=== PATIENT | female | born 1975 | race Asian ===

== ENCOUNTER 2017-08-31 08:34 | Day surgery (SDC) | payer BC ==
[2017-08-30 09:10] LABS: CHLORIDE,CL 104 mmol/L (98-110); SODIUM,NA 139 mmol/L (136-146)
[~2017-08-31 08:34] MED LIST: Bupivacaine 0.25% 10 ML SDV ONE; Fluorescein 5 ML Vial ONE; Methylene Blue 50 MG/10 ML Ampule ONE; Vasopressin 20 Units/1 ML MDV ONE
[2017-08-31] MEDS ORDERED: Sodium Chloride 0.9% 2.5 ML Syringe FLUSH PRN (09:04)
[2017-08-31] MEDS ORDERED: Sodium Chloride 0.9% 10 ML Syringe FLUSH PRN (09:04)
[2017-08-31] MEDS ORDERED: Gentamicin Pediatric 10 MG/ML 2 ML SDV IV ONE (09:04)
[2017-08-31] MEDS: Lactated Ringers 1,000 ML IV SCH ×2 (09:08→21:53)
[2017-08-31] MEDS ORDERED: Rocuronium 10 MG/ML 10 ML Syringe ONE (09:11)
[2017-08-31] MEDS ORDERED: fentaNYL 250 MCG/5 ML SDV ONE (09:11)
[2017-08-31] MEDS ORDERED: Ondansetron 4 MG/2 ML SDV ONE (09:11)
[2017-08-31] MEDS ORDERED: Propofol 200 MG/20 ML SDV ONE (09:11)
[2017-08-31] MEDS ORDERED: diphenhydrAMINE 50 MG/ML SDV ONE (09:11)
[2017-08-31] MEDS ORDERED: Midazolam 1 MG/ML 2 ML SDV ONE (09:11)
[2017-08-31] MEDS ORDERED: Dexamethasone 4 MG/ML 5 ML MDV ONE (09:11)
[2017-08-31] MEDS ORDERED: Scopolamine 1.5 MG Transdermal Patch TRDERM PRN (09:12)
[2017-08-31] MEDS ORDERED: HYDROmorphone 2 MG/ML SDV ONE (09:12)
[2017-08-31] MEDS ORDERED: Gentamicin 400 MG in Sodium Chloride 0.9% 50 ML IV ONE (09:15)
[2017-08-31] MEDS ORDERED: Clindamycin Phosphate in D5W 900 MG in Premix Bag 1 BAG IV SCH ×2 (09:15)
--- NOTE | 2017-08-31 09:16 | PCM.PREANE ---
Preanesthetic Assessment - Anesthesia/Transfusion/Family Hx Anesthesia History: Prior Anesthesia Without Reaction Family History of Anesthesia Reaction: No Transfusion History: No Prior Transfusion(s) Intubation History: Unknown - Review of Systems General: No Symptoms Pulmonary: No Symptoms Cardiovascular: No Symptoms Gastrointestinal: No Symptoms Neurological: No Symptoms Other: Reports: None - Physical Assessment O2 Sat by Pulse Oximetry: 96 Respiratory Rate: 16 Vital Signs: Last Vital Signs Temp Pulse 76 08/31/17 09:06 Resp 16 08/31/17 09:06 BP 138/94 H 08/31/17 09:06 Pulse Ox 96 08/31/17 09:06 Height: 1.58 m Weight: 82.554 kg ASA Class: 2 Mental Status: Alert & Oriented x3 Airway Class: Mallampati = 2 Dentition: Reports: Normal Dentition Thyro-Mental Finger Breadths: 3 Mouth Opening Finger Breadths: 3 ROM/Head Extension: Full Lungs: Clear to Auscultation, Normal Respiratory Effort Cardiovascular: Regular Rate, Regular Rhythm - Lab Values: Laboratory Last Values WBC 5.90 K/uL (4.0-11.0) 08/30/17 08:29 RBC 4.62 M/uL (4.30-5.90) 08/30/17 08:29 Hgb 14.3 g/dL (12.0-16.0) 08/30/17 08:29 Hct 41.6 % (36.0-46.0) 08/30/17 08:29 MCV 90.0 fL (80.0-98.0) 08/30/17 08:29 MCH 31.0 pg (27.0-32.0) 08/30/17 08: MCHC 34.4 g/dL (31.0-37.0) 08/30/17 08:29 RDW Std Deviation 40.4 fl (28.0-62.0) 08/30/17 08:29 RDW Coeff of Reese 12 % (11.0-15.0) 08/30/17 08: Plt Count 282 K/uL (150-400) 08/30/17 08:29 MPV 9.10 fL (7.40-12.00) 08/30/17 08:29 Nucleated RBC % 0.0 /100WBC 08/30/17 08:29 Nucleated RBCs # 0 K/uL 08/30/17 08:29 Sodium 139 mmol/L (136-146) 08/30/17 08:29 Potassium 3.8 mmol/L (3.5-5.1) 08/30/17 08:29 Chloride 104 mmol/L (98-110) 08/30/17 08:29 Carbon Dioxide 26 mmol/L (21-31) 08/30/17 08:29 BUN 11 mg/dL (6.0-23.0) 08/30/17 08:29 Creatinine 0.8 mg/dL (0.6-1.5) 08/30/17 08:29 Est Cr Clr Drug Dosing 72.54 mL/min 08/30/17 08:29 Estimated GFR (MDRD) > 60.0 ml/min 08/30/17 08:29 Glucose 88 mg/dL (60-110) 08/30/17 08: Calcium 9.2 mg/dL (8.8-10.8) 08/30/17 08:29 HCG, Qual NEGATIVE (NEG) 08/30/17 08:29 Blood Type A POSITIVE 08/30/17 08:29 Antibody Screen NEGATIVE 08/30/17 08:29 - Allergies Allergies/Adverse Reactions: Allergies Allergy/AdvReac Type Severity Reaction Status Date / Time ceftriaxone [From Rocephin] Allergy Hives Verified 08/26/17 10:38 Sulfa (Sulfonamide Allergy Hives Verified 08/26/17 10:38 Antibiotics) - Blood Blood Available: No - Anesthesia Plan Pre-Op Medication Ordered: None - Acknowledgements Anesthesia Type Planned: General Anesthesia Pt an Appropriate Candidate for the Planned Anesthesia: Yes Alternatives and Risks of Anesthesia Discussed w Pt/Guardian: Yes Pt/Guardian Understands and Agrees with Anesthesia Plan: Yes PreAnesthesia Questionnaire HEENT History: Reports: Other (See Below) Other HEENT History: wears glasses Cardiovascular History: Reports: High Cholesterol (recently diagnosed, will try with diet first), Other (See Below) (vericose veins) Gastrointestinal History: Reports: GERD, Hiatal Hernia [employer]INIC SUPERVISOR History: Reports: Endometriosis, , Other (See Below) (h/o ovarian cysts) Musculoskeletal History: Reports: Fracture Other Musculoskeletal History: fx foot Neurological History: Reports: Migraines Psychiatric History: Reports: Anxiety, Depression, Suicide Attempt Endocrine/Metabolic History: Reports: Obesity/BMI 30+ Dermatologic History: Reports: Eczema - Past Surgical History Head Surgeries/Procedures: Reports: None Female Surgical History: Reports: Tubal Ligation Musculoskeletal Surgical History: Reports: Other (See Below) Other Musculoskeletal Surgeries/Procedures:: ganglion cyst removed from rt wrist - SUBSTANCE USE Smoking Status *Q: Former Smoker Recreational Drug Use History: No - HOME MEDS Home Medications: Home Meds ALPRAZolam [Xanax] 1 tab PO TID PRN 08/26/17 [History] Citalopram [Citalopram HBr] 1 tab PO DAILY 08/26/17 [History] [place] Guard 2 tab PO BEDTIME 08/26/17 [History] PNV95/Ferrous Fumarate/FA [ Vitamins Tablet] 1 tab PO DAILY 08/26/17 [ History] Phentermine HCl 1 tab PO DAILY 08/26/17 [History] traMADol HCl [Tramadol HCl] 1 tab PO ASDIRECTED PRN 08/26/17 [History] - CURRENT (IN HOUSE) MEDS Current Meds: Current Medications Lactated Ringer's (Ringers, Lactated) 1,000 mls @ 100 mls/hr IV ASDIRECTED [facility] Last Admin: 08/31/17 09:08 Dose: 100 mls/hr Clindamycin Phosphate 900 mg/ (Premix) 50 mls @ 89.286 mls/hr IV ONETIME TO[facility] Gentamicin Sulfate 400 mg/ (Sodium Chloride) 60 mls @ 120 mls/hr IV ONETIME ONE Stop: 08/31/17 09:44 Scopolamine (Transderm-Scop) 1.5 mg TRDERM Q72H PRN PRN Reason: Nausea Sodium Chloride (Saline Flush) 10 ml FLUSH ASDIRECTED PRN PRN Reason: Keep Vein Open Sodium Chloride (Saline Flush) 2.5 ml FLUSH ASDIRECTED PRN PRN Reason: Keep Vein Open Discontinued Medications Bupivacaine HCl (Sensorcaine-Mpf 0.25%) Confirm Administered Dose 10 ml .ROUTE .STK-MED ONE Stop: 08/31/17 07:25 Bupivacaine HCl (Sensorcaine-Mpf 0.25%) Confirm Administered Dose 10 ml .ROUTE .STK-MED ONE Stop: 08/31/17 08:13 Fluorescein Sodium (Ak-Fluor) Confirm Administered Dose 5 ml .ROUTE .STK-MED ONE Stop: 08/31/17 07:25 Methylene Blue (Provayblue) Confirm Administered Dose 50 mg .ROUTE .STK-MED ONE Stop: 08/31/17 07:25 Vasopressin (Vasopressin) Confirm Administered Dose 20 units .ROUTE .STK-MED ONE Stop: 08/31/17 07:38
[2017-08-31] MEDS ORDERED: Furosemide 40 MG/4 ML VIAL ONE (10:37)
[2017-08-31] MEDS ORDERED: Glycopyrrolate 0.2 MG/ML SDV ONE (12:50)
[2017-08-31] MEDS ORDERED: Neostigmine Methylsulfate 1 MG/ML 5 ML Syringe ONE (12:50)
[2017-08-31] MEDS ORDERED: Ketorolac 30 MG/ML SDV ONE (14:02)
--- NOTE | 2017-08-31 14:57 | PCM.POSTAN ---
POST ANESTHESIA ASSESSMENT - MENTAL STATUS Mental Status: Alert, Oriented - RESPIRATORY Respiratory Status: Respiratory Rate WNL, Airway Patent, O2 Saturation Stable - CARDIOVASCULAR CV Status: Pulse Rate WNL, Blood Pressure Stable - GASTROINTESTINAL GI Status: No Symptoms - POST OP HYDRATION Hydration Status: Adequate & Stable
--- NOTE | 2017-08-31 16:27 | PCM48HPAN ---
Post Anesthesia Note - EVALUATION WITHIN 48HRS OF ANESTHETIC Vital Signs in Normal Range: Yes Patient Participated in Evaluation: Yes Respiratory Function Stable: Yes Airway Patent: Yes Cardiovascular Function Stable: Yes Hydration Status Stable: Yes Pain Control Satisfactory: Yes Nausea and Vomiting Control Satisfactory: Yes Mental Status Recovered: Yes
--- NOTE | 2017-08-31 16:41 | PCM.OPNOTE ---
- General Post-Op/Procedure Note Date of Surgery/Procedure: 08/31/17 Operative Procedure(s): Total Laparoscopic Hysterectomy , Bilateral salphingectomy , Cystoscopy Findings: 10 week sized anteverted uterus. Laparoscopy showed very minimal endometriosis in the left pelvic sidewall Intial cytoscopy showed stitch in the bladder, the vagina cuff stitch was then removed and resutured, subsequent cystoscopy showed normal bladder with no stitches and bilateral jets Pre Op Diagnosis: Abnormal uterine bleeding. Chronic pelvic pain Post-Op Diagnosis: Same Anesthesia Technique: General Mask Primary Surgeon: Jennifer Deutsch Secondary Surgeon: Emma Simpson Anesthesia Provider: Wiley Tang Radi Pathology: Uterus and cervix and remnant of right and left tubes Fluid Replacement, Intraop: 3,000 Output, Urine Amount: 300 EBL in mLs: 200 Complications: None Condition: Good Free Text/Narrative:: Intake & Output 08/31/17 08/31/17 08/31/17 06:59 14:59 22:59 Intake Total 3150 Output Total 300 450 Balance -300 2700
[2017-08-31] MEDS ORDERED: Morphine 4 MG/ML Syringe IVPUSH PRN (16:44)
[2017-08-31] MEDS ORDERED: Morphine 2 MG/ML Syringe IVPUSH PRN (16:44)
[2017-08-31] MEDS ORDERED: Promethazine 25 MG/ML SDV IM PRN (16:44)
[2017-08-31] MEDS ORDERED: Ketorolac 30 MG/ML SDV IVPUSH ONE (16:44)
[2017-08-31] MEDS ORDERED: Ondansetron 4 MG/2 ML SDV IVPUSH PRN (16:44)
[2017-08-31] MEDS ORDERED: Acetaminophen/oxyCODONE 325-5 MG Tab PO PRN ×2 (16:44)
[2017-08-31] MEDS ORDERED: Gentamicin Pediatric 10 MG/ML 2 ML SDV IV SCH (16:45)
[2017-08-31] MEDS: Metoclopramide 10 MG/2 ML SDV IVPUSH SCH (18:47)
[2017-08-31] MEDS: Clindamycin Phosphate in D5W 900 MG in Premix Bag 1 BAG IV SCH ×2 (18:49)
--- NOTE | 2017-08-31 18:58 | PCM.SN ---
- Free Text/Narrative Note: Patient seen has bedside , she complains of slight nausea. she as good pain control. denies vaginal bleeding, she is tolerating fluids U/O;- 40cc/hr, Clear VSS;- 110 - 120s/50 - 70s , HR;- 60s- 80 , RR; - 20 Exam: Laparoscopic incision with dressing in place c/d/i Imp;- 42 s/p TLH , BS and cytoscopy Plan; Tylenol 1000mg q 8hrs reglan 10mg q 6hrs Percocet and Toradol as needed
[2017-08-31] MEDS: Acetaminophen 1,000 MG in Premix Bag 1 BAG IV SCH (19:26)
[2017-08-31] MEDS ORDERED: Ketorolac 30 MG/ML SDV IVPUSH PRN (23:00)
[2017-09-01] MEDS: Metoclopramide 10 MG/2 ML SDV IVPUSH SCH (02:06)
[2017-09-01] MEDS: Clindamycin Phosphate in D5W 900 MG in Premix Bag 1 BAG IV SCH ×2 (02:07)
[2017-09-01] MEDS: Acetaminophen 1,000 MG in Premix Bag 1 BAG IV SCH (02:44)
[2017-09-01 05:56] LABS: CHLORIDE,CL 105 mmol/L (98-110); SODIUM,NA 137 mmol/L (136-146)
--- NOTE | 2017-09-01 09:46 | PCM.SURGPN ---
- General Info Date of Service: 09/01/17 Date of Surgery/Procedure: 08/31/17 POD#: 1 Post-Op Diagnosis: Abnormal Uterine Bleeding Functional Status: Reports: Pain Controlled, Tolerating Diet, Ambulating, Urinating, Incentive Spirometry - Review of Systems General: Reports: No Symptoms HEENT: Reports: No Symptoms Pulmonary: Reports: No Symptoms Cardiovascular: Reports: No Symptoms Gastrointestinal: Reports: No Symptoms Genitourinary: Reports: No Symptoms Musculoskeletal: Reports: No Symptoms Skin: Reports: No Symptoms Neurological: Reports: No Symptoms - Patient Data Vitals - Most Recent: Last Vital Signs Temp 36.9 C 09/01/17 04:00 Pulse 91 09/01/17 04:00 Resp 19 09/01/17 04:00 BP 93/53 L 09/01/17 04:00 Pulse Ox 96 09/01/17 04:00 Weight - Most Recent: 82.554 kg I&O - Last 24 Hours: Intake & Output 08/31/17 09/01/17 09/01/17 22:59 06:59 14:59 Intake Total 6550 550 Output Total 850 2300 Balance 5700 -1750 Lab Results Last 24 Hrs: Laboratory Results - last 24 hr 09/01/17 09/01/17 Range/Units 05:08 05:08 WBC 8.35 (4.0-11.0) K/uL RBC 3.67 L (4.30-5.90) M/uL Hgb 11.3 L (12.0-16.0) g/dL Hct 33.5 L (36.0-46.0) % MCV 91.3 (80.0-98.0) fL MCH 30.8 (27.0-32.0) pg MCHC 33.7 (31.0-37.0) g/dL RDW Std Deviation 41.4 (28.0-62.0) fl RDW Coeff of Reese 12 (11.0-15.0) % Plt Count 244 (150-400) K/uL MPV 9.30 (7.40-12.00) fL Neut % (Auto) 75.4 (48.0-80.0) % Lymph % (Auto) 19.6 (16.0-40.0) % [place] % (Auto) 4.6 (0.0-15.0) % Eos % (Auto) 0.2 (0.0-7.0) % Baso % (Auto) 0.2 (0.0-1.5) % Neut # (Auto) 6.3 H (1.4-5.7) K/uL Lymph # (Auto) 1.6 (0.6-2.4) K/uL [place] # (Auto) 0.4 (0.0-0.8) K/uL Eos # (Auto) 0.0 (0.0-0.7) K/uL Baso # (Auto) 0.0 (0.0-0.1) K/uL Nucleated RBC % 0.0 /100WBC Nucleated RBCs # 0 K/uL Sodium 137 (136-146) mmol/L Potassium 3.9 (3.5-5.1) mmol/L Chloride 105 (98-110) mmol/L Carbon Dioxide 26 (21-31) mmol/L BUN 10 (6.0-23.0) mg/dL Creatinine 0.8 (0.6-1.5) mg/dL Est Cr Clr Drug Dosing 72.54 mL/min Estimated GFR (MDRD) > 60.0 ml/min Glucose 133 H (60-110) mg/dL Calcium 8.7 L (8.8-10.8) mg/dL Med Orders - Current: Current Medications Lactated Ringer's (Ringers, Lactated) 1,000 mls @ 100 mls/hr IV ASDIRECTED [facility] Last Admin: 08/31/17 21:53 Dose: 100 mls/hr Gentamicin Sulfate 120 mg/ (Sodium Chloride) 53 mls @ 106 mls/hr IV Q8H [facility] Clindamycin Phosphate 900 mg/ (Premix) 50 mls @ 100 mls/hr IV Q8H [facility] Ketorolac Tromethamine (Toradol) 30 mg IVPUSH Q6H PRN PRN Reason: Pain (severe 7-10) Stop: 09/05/17 23:01 Last Admin: 09/01/17 07:46 Dose: 30 mg Metoclopramide HCl (Reglan) 10 mg IVPUSH Q8H [facility] Morphine Sulfate (Morphine) 2 mg IVPUSH Q2H PRN PRN Reason: Pain (severe 7-10) Morphine Sulfate (Morphine) 4 mg IVPUSH Q2H PRN PRN Reason: Pain (severe 7-10) Ondansetron HCl (Zofran) 4 mg IVPUSH Q6H PRN PRN Reason: Nausea/Vomiting Oxycodone/Acetaminophen (Percocet 325-5 Mg) 1 tab PO Q4H PRN PRN Reason: Pain (moderate 4-6) Oxycodone/Acetaminophen (Percocet 325-5 Mg) 2 tab PO Q4H PRN PRN Reason: Pain (moderate 4-6) Promethazine HCl (Phenergan) 25 mg IM Q6H PRN PRN Reason: Nausea/Vomiting Scopolamine (Transderm-Scop) 1.5 mg TRDERM Q72H PRN PRN Reason: Nausea Last Admin: 08/31/17 09:55 Dose: 1.5 mg Sodium Chloride (Saline Flush) 10 ml FLUSH ASDIRECTED PRN PRN Reason: Keep Vein Open Sodium Chloride (Saline Flush) 2.5 ml FLUSH ASDIRECTED PRN PRN Reason: Keep Vein Open Discontinued Medications Bupivacaine HCl (Sensorcaine-Mpf 0.25%) Confirm Administered Dose 10 ml .ROUTE .STK-MED ONE Stop: 08/31/17 07:25 Bupivacaine HCl (Sensorcaine-Mpf 0.25%) Confirm Administered Dose 10 ml .ROUTE .STK-MED ONE Stop: 08/31/17 08:13 Dexamethasone (Dexamethasone) Confirm Administered Dose 20 mg .ROUTE .STK-MED ONE Stop: 08/31/17 09:12 Diphenhydramine HCl (Benadryl) Confirm Administered Dose 50 mg .ROUTE .STK-MED ONE Stop: 08/31/17 09:12 Fentanyl (Sublimaze) Confirm Administered Dose 250 mcg .ROUTE .STK-MED ONE Stop: 08/31/17 09:12 Fluorescein Sodium (Ak-Fluor) Confirm Administered Dose 5 ml .ROUTE .STK-MED ONE Stop: 08/31/17 07:25 Furosemide (Lasix) Confirm Administered Dose 40 mg .ROUTE .STK-MED ONE Stop: 08/31/17 10:38 Glycopyrrolate (Robinul) Confirm Administered Dose 0.4 mg .ROUTE .STK-MED ONE Stop: 08/31/17 12:51 Hydromorphone HCl (Dilaudid) Confirm Administered Dose 2 mg .ROUTE .STK-MED ONE Stop: 08/31/17 09:13 Clindamycin Phosphate 900 mg/ (Premix) 50 mls @ 89.286 mls/hr IV ONETIME [facility] Gentamicin Sulfate 400 mg/ (Sodium Chloride) 60 mls @ 120 mls/hr IV ONETIME ONE Stop: 08/31/17 09:44 Last Admin: 09/01/17 08:29 Dose: Not Given Acetaminophen (Ofirmev) Confirm Administered Dose 100 mls @ as directed IV .STK- MED ONE Stop: 08/31/17 10:39 Clindamycin Phosphate 900 mg/ (Premix) 50 mls @ 100 mls/hr IV Q8H [facility] Last Admin: 09/01/17 02:07 Dose: 100 mls/hr Acetaminophen 1,000 mg/ Premix 100 mls @ 400 mls/hr IV Q8H [facility] Stop: 09/01/17 01:14 Last Admin: 09/01/17 02:44 Dose: 400 mls/hr Gentamicin Sulfate 120 mg/ (Sodium Chloride) 53 mls @ 106 mls/hr IV Q8H [facility] Last Admin: 09/01/17 03:07 Dose: 106 mls/hr Ketorolac Tromethamine (Toradol) Confirm Administered Dose 30 mg .ROUTE .STK- MED ONE Stop: 08/31/17 14:03 Ketorolac Tromethamine (Toradol) 30 mg IVPUSH ONETIME ONE Stop: 08/31/17 16:45 Last Admin: 09/01/17 07:45 Dose: Not Given Methylene Blue (Provayblue) Confirm Administered Dose 50 mg .ROUTE .STK-MED ONE Stop: 08/31/17 07:25 Metoclopramide HCl (Reglan) 10 mg IVPUSH Q8H [facility] Last Admin: 09/01/17 02:06 Dose: 10 mg Midazolam HCl (Versed 1 Mg/Ml) Confirm Administered Dose 2 mg .ROUTE .STK-MED ONE Stop: 08/31/17 09:12 Neostigmine Methylsulfate (Neostigmine) Confirm Administered Dose 5 mg .ROUTE .STK-MED ONE Stop: 08/31/17 12:51 Ondansetron HCl (Zofran) Confirm Administered Dose 4 mg .ROUTE .STK-MED ONE Stop: 08/31/17 09:12 Propofol (Diprivan 20 Ml) Confirm Administered Dose 200 mg .ROUTE .STK-MED ONE Stop: 08/31/17 09:12 Rocuronium Niland (Zemuron) Confirm Administered Dose 100 mg .ROUTE .STK-MED ONE Stop: 08/31/17 09:12 Vasopressin (Vasopressin) Confirm Administered Dose 20 units .ROUTE .STK-MED ONE Stop: 08/31/17 07:38 - Exam Wound/Incisions: Dressing Dry and Intact, No Drainage General: Alert, Oriented HEENT: Pupils Equal Lungs: Clear to Auscultation Cardiovascular: Regular Rate, Regular Rhythm GI/Abdominal Exam: Normal Bowel Sounds Extremities: Normal Inspection - Problem List & Annotations (1) Status post laparoscopic hysterectomy SNOMED Code(s): 762184563 Code(s): Z90.710 - ACQUIRED ABSENCE OF BOTH CERVIX AND UTERUS Status: Acute Current Visit: Yes - Problem List Review Problem List Initiated/Reviewed/Updated: Yes - My Orders Last 24 Hours: Active Orders 24 hr Category Date Time Status Patient Status [ADT] Routine ADT 08/31/17 09:04 Active Patient Status [ADT] Routine ADT 08/31/17 16:44 Active Antiembolic Devices [RC] PER UNIT ROUTINE Care 08/31/17 09:05 Active Intake and Output [RC] PER UNIT ROUTINE Care 08/31/17 16:46 Active Notify Provider Intake and Out [RC] ASDIRECTED Care 08/31/17 16:44 Active Notify Provider Vital Signs [RC] ASDIRECTED Care 08/31/17 16:44 Active Oxygen Therapy [RC] ASDIRECTED Care 08/31/17 16:44 Active Pulse Oximetry [RC] PER UNIT ROUTINE Care 08/31/17 16:46 Active RT Incentive Spirometry [RC] Q2HWA Care 08/31/17 16:44 Active Up With Assistance [RC] PER UNIT ROUTINE Care 08/31/17 16:44 Active Up ad Karla [RC] PER UNIT ROUTINE Care 08/31/17 16:44 Active Vital Signs [RC] PER UNIT ROUTINE Care 08/31/17 16:44 Active Regular Diet [DIET] Diet 08/31/17 Dinner Active Acetaminophen/oxyCODONE [Percocet 325-5 MG] Med 08/31/17 16:44 Active 1 tab PO Q4H PRN Acetaminophen/oxyCODONE [Percocet 325-5 MG] Med 08/31/17 16:44 Active 2 tab PO Q4H PRN Clindamycin Phosphate in D5W [Cleocin in D5W] 900 mg Med 09/01/17 10:00 Active Premix Bag 1 bag IV Q8H Gentamicin 120 mg Med 09/01/17 10:00 Active Sodium Chloride 0.9% [Normal Saline] 50 ml IV Q8H Ketorolac [Toradol] Med 08/31/17 23:00 Active 30 mg IVPUSH Q6H PRN Metoclopramide [Reglan] Med 09/01/17 10:00 Active 10 mg IVPUSH Q8H Morphine Med 08/31/17 16:44 Active 2 mg IVPUSH Q2H PRN Morphine Med 08/31/17 16:44 Active 4 mg IVPUSH Q2H PRN Ondansetron [Zofran] Med 08/31/17 16:44 Active 4 mg IVPUSH Q6H PRN Promethazine [Phenergan] Med 08/31/17 16:44 Active 25 mg IM Q6H PRN Scopolamine [Transderm-Scop] Med 08/31/17 09:12 Active 1.5 mg TRDERM Q72H PRN Sodium Chloride 0.9% [Saline Flush] Med 08/31/17 09:04 Active 10 ml FLUSH ASDIRECTED PRN Sodium Chloride 0.9% [Saline Flush] Med 08/31/17 09:04 Active 2.5 ml FLUSH ASDIRECTED PRN Peripheral IV Discontinue [OM.PC] Routine Oth 08/31/17 16:44 Ordered Sequential Compression Device [OM.PC] Per Unit Routine Oth 08/31/17 09:04 Ordered Sequential Compression Device [OM.PC] Per Unit Routine Oth 08/31/17 16:44 Ordered Resuscitation Status Routine Resus Stat 08/31/17 16:44 Ordered Medication Orders Lactated Ringer's (Ringers, Lactated) 1,000 mls @ 100 mls/hr IV ASDIRECTED TO[facility] Last Admin: 08/31/17 21:53 Dose: 100 mls/hr Infusion: 08/31/17 19:08 Dose: 100 mls/hr Admin: 08/31/17 09:08 Dose: 100 mls/hr Gentamicin Sulfate 120 mg/ (Sodium Chloride) 53 mls @ 106 mls/hr IV Q8H [facility] Clindamycin Phosphate 900 mg/ (Premix) 50 mls @ 100 mls/hr IV Q8H [facility] Ketorolac Tromethamine (Toradol) 30 mg IVPUSH Q6H PRN PRN Reason: Pain (severe 7-10) Stop: 09/05/17 23:01 Last Admin: 09/01/17 07:46 Dose: 30 mg Metoclopramide HCl (Reglan) 10 mg IVPUSH Q8H [facility] Morphine Sulfate (Morphine) 2 mg IVPUSH Q2H PRN PRN Reason: Pain (severe 7-10) Morphine Sulfate (Morphine) 4 mg IVPUSH Q2H PRN PRN Reason: Pain (severe 7-10) Ondansetron HCl (Zofran) 4 mg IVPUSH Q6H PRN PRN Reason: Nausea/Vomiting Oxycodone/Acetaminophen (Percocet 325-5 Mg) 1 tab PO Q4H PRN PRN Reason: Pain (moderate 4-6) Oxycodone/Acetaminophen (Percocet 325-5 Mg) 2 tab PO Q4H PRN PRN Reason: Pain (moderate 4-6) Promethazine HCl (Phenergan) 25 mg IM Q6H PRN PRN Reason: Nausea/Vomiting Scopolamine (Transderm-Scop) 1.5 mg TRDERM Q72H PRN PRN Reason: Nausea Last Admin: 08/31/17 09:55 Dose: 1.5 mg Sodium Chloride (Saline Flush) 10 ml FLUSH ASDIRECTED PRN PRN Reason: Keep Vein Open Sodium Chloride (Saline Flush) 2.5 ml FLUSH ASDIRECTED PRN PRN Reason: Keep Vein Open - Assessment Assessment (Free Text/Narrative):: 42 s/p TLH/BS for Abnormal uterine bleeding , POD1 , stable - Plan Plan (Free Text/Narrative):: Discharge home today with Pain medication No heavy lifting Pelvic rest
[2017-09-01] MEDS ORDERED: Enoxaparin 40 MG/0.4 ML Syringe SUBCUT ONE (09:53)
[2017-09-01] MEDS ORDERED: Clindamycin Phosphate in D5W 900 MG in Premix Bag 1 BAG IV SCH ×2 (10:00)
[2017-09-01] MEDS ORDERED: Metoclopramide 10 MG/2 ML SDV IVPUSH SCH (10:00)
--- NOTE | 2017-09-03 06:42 | OR ---
DATE OF PROCEDURE: 08/31/2017 SURGEON: DIANA BAI PREOPERATIVE DIAGNOSIS: 1.Abnormal uterine bleeding. 2. Chronic pelvic pain POSTOPERATIVE DIAGNOSES: 1. Abnormal uterine bleeding. 2. Chronic pelvic pain. PROCEDURE: Total laparoscopic hysterectomy, bilateral salpingectomy, cystoscopy. ANESTHESIA: General. IV FLUID: 3 L. URINE OUTPUT: 300. COMPLICATIONS: None. FINDIN week sized anteverted uterus, Normal tubes and ovaries . Minimal endometriotic deposits on the right pelvic side wall BRIEF HISTORY: She is a 42-year-old para 3, who complained of having painful periods. She also complained of heavy uterine bleeding, which was prolonged. The patient also had used IUD in the past and was not happy with the IUD. She also did not desire to have a Mirena IUD placed for the prolonged periods. She had an endometrial biopsy done, which was benign. The patient was counseled for hysterectomy. The patient desired hysterectomy and was counseled about the risks, benefits, and alternatives. She desired to proceed with the hysterectomy. DESCRIPTION OF PROCEDURE: The patient was taken to the operating room, where general anesthesia was performed without difficulty. A pneumatic compression stocking was applied to the lower extremity. General anesthesia was performed without difficulty. The patient was placed in dorsal lithotomy position with Johnnie stirrups. Both arms were tucked on both sides. Examination under anesthesia showed about a 10-week sized anteverted uterus. The patient was prepared and draped in the usual sterile fashion. The Medrano catheter was inserted. A bivalved speculum was also placed to expose the cervix. The anterior lip of the cervix was grasped with the Allis forceps. The uterus was then sounded to about 9 cm. The Advincula supervisor heavy equipment was placed. The tip of the Advincula was inflated. The occluder balloon was also inflated. Attention was then placed to the abdomen. Marcaine was injected in the subumbilical fold. A small incision was made at the umbilical fold and the abdomen was entered by direct entry with the fiberoptic trocar. Upon confirmation of entry into the peritoneal cavity, the CO2 gas was then insufflated into the abdomen with a pressure of 15 mmHg. Intraabdominal survey revealed normal-appearing liver, gallbladder, and spleen. The pelvic anatomy was noted above. Again, two 5 mm trocars were inserted into bilateral lower quadrants two fingerbreadths medial and anterior to the anterior superior iliac spine, diagonal to the umbilicus. The patient was placed in the Trendelenburg position to facilitate pelvic exposure. Then, both ureters were identified and hysterectomy was started. On the right and left, the tubes was identified, and the LigaSure was used to transect the tubes and detached the tubes from the mesentery, all the way to the level of the uterus. The round ligament was identified and also transected to separate the broad ligament. The ovarian ligament was also and transected to separate the ovaries from the uterus. With the round ligament identified and transected, the bladder flap was created with the aid of the LigaSure device and Harmonic Scalpel. The bladder was dissected off the lower uterine segment and upper vagina. Also, the posterior peritoneum exposed to the level of the uterosacral to expose the uterine vessels after being skeletonized with the aid of LigaSure device and Harmonic. The Advincula manipulator was on tension to avoid the ureter injury. The LigaSure device was then used to coagulate the uterine vessels at the colpotomy junction and above the cervical vaginal junction. The uterine vessels was lateralized. The vagina was entered and scored circumferentially at the cervical vaginal junction with the harmonic scalpel. The uterosacral and cardinal ligament were then completely detached from the cervix. After completion of this, the attention was then placed to the vagina where the manipulator bulb was deflated, and the cervix and the uterus were taken out through the vagina. The vaginal colpotomy was then identified. A Juarez stitch was placed from the posterior vagina to the uterosacrals through the peritoneum back to the uterosacrals on the other side. The vaginal incision was then stitched in a transverse fashion. A Juarez's was then tied up to elevate the vagina. A cystoscopy was performed. An incision stitch was found in the lower bladder segment. Attention was then placed to the vagina, where the Juarez's was removed and the vaginal incision was removed. It was then replaced with attention paid to avoid the bladder. After the cystoscopy was also performed, bladder was noted to be intact and the ureter jet was also observed. The attention was then paid to the abdomen for laparoscopy. Hemostasis was controlled with the hemostatic film was noted Inspection then revealed hemostasis. The trocars were then removed under direct guidance. The instruments were removed from the abdomen. The laparoscopic incision was then stitched with 4-0 Monocryl. The Steri-Strips was placed. Good hemostasis was noted in the abdomen. The vagina was then inspected again and the incision was noted to be hemostatic. All instrument and pad count were correct x2. The patient was taken to the recovery room in stable condition. ASA ELIZABETH /[id number] RAH
== END 2017-09-01 11:00 | disposition home or self-care (01) ==
LOC: MW.SDS 08:34 → MW.OB 16:07 → MW.SDS 09-01 11:00
PROVIDERS: ATTEND Obstetrics & Gynecology
DX: N84.0 Polyp of corpus uteri (principal); N80.0 Endometriosis of uterus; F32.9 Major depressive disorder, single episode, unspecified; E78.00 Pure hypercholesterolemia, unspecified; Z88.1 Allergy status to other antibiotic agents; Z88.2 Allergy status to sulfonamides; Z79.899 Other long term (current) drug therapy; Z98.51 Tubal ligation status
CPT/HCPCS: 36415; 58571; 80048; 84703; 85025; 85027; 86850; 86900; 86901; 88302; 88307; A9270; J1100; J1170; J1200; J1580; J1650; J1885; J1940; J2250; J2405; J2765; J3010; J7050; J7120; 00840; J2704

== ENCOUNTER 2017-11-19 09:07 | Day surgery (SDC) | payer BC ==
[~2017-11-19 09:07] MED LIST changes: -Bupivacaine 0.25% 10 ML SDV ONE; -Fluorescein 5 ML Vial ONE; +Lactated Ringers 1,000 ML IV SCH; +Lidocaine 2% 5 ML SDV ONE; -Methylene Blue 50 MG/10 ML Ampule ONE; +Propofol 200 MG/20 ML SDV ONE; -Vasopressin 20 Units/1 ML MDV ONE
--- NOTE | 2017-11-19 09:43 | PCM.PREANE ---
Preanesthetic Assessment - Anesthesia/Transfusion/Family Hx Anesthesia History: Prior Anesthesia Without Reaction Family History of Anesthesia Reaction: No Transfusion History: No Prior Transfusion(s) Intubation History: Unknown - Review of Systems General: No Symptoms Pulmonary: No Symptoms Cardiovascular: No Symptoms Neurological: No Symptoms Other: Reports: None - Physical Assessment NPO Status Date: 11/18/17 Height: 1.57 m Weight: 80.286 kg ASA Class: 2 Mental Status: Alert & Oriented x3 Airway Class: Mallampati = 1 ROM/Head Extension: Full Lungs: Clear to Auscultation, Normal Respiratory Effort Cardiovascular: Regular Rate, Regular Rhythm - Allergies Allergies/Adverse Reactions: Allergies Allergy/AdvReac Type Severity Reaction Status Date / Time ceftriaxone [From Rocephin] Allergy Hives Verified 11/17/17 10:35 Sulfa (Sulfonamide Allergy Hives Verified 11/17/17 10:35 Antibiotics) - Acknowledgements Anesthesia Type Planned: MAC Pt an Appropriate Candidate for the Planned Anesthesia: Yes Alternatives and Risks of Anesthesia Discussed w Pt/Guardian: Yes Pt/Guardian Understands and Agrees with Anesthesia Plan: Yes Additional Comments: PMH: gerd and dysphagia PreAnesthesia Questionnaire HEENT History: Reports: Other (See Below) Other HEENT History: wears glasses Cardiovascular History: Reports: None, High Cholesterol Gastrointestinal History: Reports: GERD, Hiatal Hernia Genitourinary History: Reports: None MATERIALS DIRECTOR History: Reports: Endometriosis, Musculoskeletal History: Reports: Fracture Other Musculoskeletal History: fx foot Neurological History: Reports: Migraines Psychiatric History: Reports: Anxiety, Depression, Suicide Attempt Endocrine/Metabolic History: Reports: Obesity/BMI 30+ Hematologic History: Reports: Anemia Dermatologic History: Reports: Eczema - Past Surgical History Head Surgeries/Procedures: Reports: None GI Surgical History: Reports: Colonoscopy, EGD Female Surgical History: Reports: Hysterectomy, Tubal Ligation Musculoskeletal Surgical History: Reports: Other (See Below) Other Musculoskeletal Surgeries/Procedures:: ganglion cyst removed from rt wrist - SUBSTANCE USE Smoking Status *Q: Former Smoker Recreational Drug Use History: No - HOME MEDS Home Medications: Home Meds ALPRAZolam [Xanax] 1 tab PO TID PRN 08/26/17 [History] Citalopram [Citalopram HBr] 1 tab PO DAILY 08/26/17 [History] PNV95/Ferrous Fumarate/FA [ Vitamins Tablet] 2 tab CHEW DAILY 08/26/17 [ History] Fexofenadine [Laya] 1 tab PO ASDIRECTED PRN 11/17/17 [History] Ibuprofen 1 tab PO ASDIRECTED PRN 11/17/17 [History] Omeprazole 20 mg PO DAILY 11/17/17 [History] Ranitidine HCl [Zantac] 1 tab PO DAILY 11/17/17 [History] - CURRENT (IN HOUSE) MEDS Current Meds: Current Medications Lactated Ringer's (Ringers, Lactated) 1,000 mls @ 125 mls/hr IV ASDIRECTED TOBY Discontinued Medications Lidocaine (Xylocaine-Mpf 2%) Confirm Administered Dose 5 ml .ROUTE .STK-MED ONE Stop: 11/19/17 07:29 Propofol (Diprivan 20 Ml) Confirm Administered Dose 400 mg .ROUTE .STK-MED ONE Stop: 11/19/17 07:29
[2017-11-19] MEDS ORDERED: Propofol 200 MG/20 ML SDV ONE (11:47)
--- NOTE | 2017-11-19 12:20 | PCM.OPNOTE ---
- General Post-Op/Procedure Note Date of Surgery/Procedure: 11/19/17 Operative Procedure(s): Esophagogastroduodenoscopy with biopsy. Colonoscopy. Pre Op Diagnosis: Progressive heartburn with gastroesophageal reflux. Change in bowel habits. Post-Op Diagnosis: Gastritis. Hiatal hernia. No evidence of colonic neoplasia. Anesthesia Technique: MAC (ASA II) Primary Surgeon: Claudy Wilkins Blade Grinder: Inder Metzger Condition: Good Free Text/Narrative:: Dictation [id number] CPT CODE 50207/[id number]
[2017-11-19] MEDS ORDERED: Lactated Ringers 1,000 ML IV SCH (12:30)
--- NOTE | 2017-11-22 11:16 | OR ---
SURGEON: Claudy Wilkins M.D. DATE OF PROCEDURE: 11/19/2017 OPERATION PERFORMED: Esophagogastroduodenoscopy with biopsy. ANESTHESIA: MAC. ASA CLASSIFICATION: II. FIBER TECHNOLOGIST: Dr. Metzger, PGY2. PREOPERATIVE DIAGNOSIS: Progressive heartburn with reflux. POSTOPERATIVE DIAGNOSES: 1. Gastritis. 2. Hiatal hernia. DESCRIPTION OF PROCEDURE: The patient was taken to the endoscopy room and positioned on the endoscopy table in the left lateral decubitus position. Time-out was called for appropriate identification of the patient and procedure. Monitored anesthesia care was provided. A bite block was placed between the patient's teeth and the gastroscope inserted through the bite block into the oropharynx. This was advanced without difficulty into the esophagus and subsequently through the stomach into the duodenum, where examination could now be carried out in a retrograde fashion. The duodenum shows no acute inflammatory changes. Stomach shows mild gastritis. Antral biopsies were obtained to look for the presence of Helicobacter pylori. The gastroscope was then retroflexed to look at the proximal stomach. The patient does have a hiatal hernia that can be seen from below, as well as from above. The scope was then straightened and slowly withdrawn, carefully visualizing the greater and lesser curvatures. The hiatal hernia was again visualized. Stomach was aspirated as the scope was withdrawn. The GE junction was well defined and shows no acute inflammatory changes or ulcerations. The esophagus demonstrates good contractility. No mid or proximal lesions were identified. The vocal cords were visualized as the scope was withdrawn. Vocal cords move symmetrically. No vocal cord lesions were identified. The gastroscope was then removed with the patient having tolerated the procedure well. Following colonoscopy, she was taken to recovery room in stable condition. AURA ELIZABETH /[id number]
--- NOTE | 2017-11-22 11:19 | OR ---
SURGEON: Claudy Wilkins M.D. DATE OF PROCEDURE: 11/19/2017 OPERATION PERFORMED: Colonoscopy. COLLAR TURNER OPERATOR: Dr. Metzger, PGY2. ANESTHESIA: MAC. ASA CLASSIFICATION: II. PREOPERATIVE DIAGNOSIS: Change in bowel habits. POSTOPERATIVE DIAGNOSIS: No evidence of neoplasia or inflammatory bowel disease. DESCRIPTION OF PROCEDURE: With the patient having completed esophagogastroduodenoscopy, she was maintained in the left lateral decubitus position. The colonoscope was inserted into the rectum and advanced with minimal difficulty to the cecum, where the colonoscope was retroflexed to visualize the ascending colon from below. The colonoscope was then straightened and slowly withdrawn. The cecum, ascending colon, hepatic flexure, transverse colon, splenic flexure, descending colon, sigmoid colon, and rectum were very well visualized. No tumors, polyps, diverticula, or angiodysplastic changes were noted anywhere in the lower gastrointestinal tract. The colonoscope was withdrawn to the rectum and retroflexed to visualize the anal orifice from above. Again, no tumors or polyps were seen, and there were no acute hemorrhoidal changes. The colonoscope was straightened, the rectum aspirated, and the colonoscope removed. The patient tolerated the procedure well and was taken to recovery room in stable condition. AURA / CLARA /[id number]
== END 2017-11-19 12:55 | disposition home or self-care (01) ==
LOC: MW.SDS 09:07
PROVIDERS: ATTEND Surgery
DX: K29.50 Unspecified chronic gastritis without bleeding (principal); K44.9 Diaphragmatic hernia without obstruction or gangrene; R19.4 Change in bowel habit; K21.9 Gastro-esophageal reflux disease without esophagitis; F41.9 Anxiety disorder, unspecified; F32.9 Major depressive disorder, single episode, unspecified; E66.9 Obesity, unspecified; Z68.32 Body mass index [BMI] 32.0-32.9, adult; D64.9 Anemia, unspecified; E78.00 Pure hypercholesterolemia, unspecified; L30.9 Dermatitis, unspecified; Z88.1 Allergy status to other antibiotic agents; Z88.2 Allergy status to sulfonamides; Z79.899 Other long term (current) drug therapy; Z90.710 Acquired absence of both cervix and uterus; Z98.51 Tubal ligation status; Z98.890 Other specified postprocedural states; Z87.891 Personal history of nicotine dependence
CPT/HCPCS: 43239; 45378; J7120; 00813; 88305; 88312; J2704

== ENCOUNTER 2018-04-15 06:56 | Day surgery (SDC) | payer BC ==
[~2018-04-15 06:56] MED LIST changes: +Ciprofloxacin in D5W 400 MG in Premix Bag 1 BAG IV SCH; -Lidocaine 2% 5 ML SDV ONE; -Propofol 200 MG/20 ML SDV ONE
[2018-04-15] MEDS ORDERED: fentaNYL 100 MCG/2 ML SDV ONE ×2 (07:22→08:49)
[2018-04-15] MEDS ORDERED: Midazolam 1 MG/ML 2 ML SDV ONE (07:22)
[2018-04-15] MEDS ORDERED: Propofol 200 MG/20 ML SDV ONE (07:22)
[2018-04-15] MEDS ORDERED: Scopolamine 1.5 MG Transdermal Patch TRDERM PRN (07:23)
--- NOTE | 2018-04-15 07:27 | PCM.PREANE ---
Preanesthetic Assessment - Anesthesia/Transfusion/Family Hx Anesthesia History: Prior Anesthesia Without Reaction Family History of Anesthesia Reaction: No Transfusion History: No Prior Transfusion(s) Intubation History: Unknown - Review of Systems General: No Symptoms Pulmonary: No Symptoms Cardiovascular: No Symptoms Gastrointestinal: Abdominal Pain Neurological: No Symptoms Other: Reports: None - Physical Assessment O2 Sat by Pulse Oximetry: 98 Respiratory Rate: 16 Vital Signs: Last Vital Signs Temp 36.4 C 04/15/18 07:13 Pulse 75 04/15/18 07:13 Resp 16 04/15/18 07:13 BP 128/73 04/15/18 07:13 Pulse Ox 98 04/15/18 07:13 Height: 1.57 m Weight: 82.554 kg ASA Class: 2 Mental Status: Alert & Oriented x3 Airway Class: Mallampati = 2 Dentition: Reports: Normal Dentition Thyro-Mental Finger Breadths: 3 Mouth Opening Finger Breadths: 2 ROM/Head Extension: Full Lungs: Clear to Auscultation, Normal Respiratory Effort Cardiovascular: Regular Rate, Regular Rhythm - Allergies Allergies/Adverse Reactions: Allergies Allergy/AdvReac Type Severity Reaction Status Date / Time ceftriaxone [From Rocephin] Allergy Hives Verified 04/13/18 08:25 Sulfa (Sulfonamide Allergy Hives Verified 04/13/18 08:25 Antibiotics) - Blood Blood Available: No - Anesthesia Plan Pre-Op Medication Ordered: None - Acknowledgements Anesthesia Type Planned: General Anesthesia Pt an Appropriate Candidate for the Planned Anesthesia: Yes Alternatives and Risks of Anesthesia Discussed w Pt/Guardian: Yes Pt/Guardian Understands and Agrees with Anesthesia Plan: Yes PreAnesthesia Questionnaire HEENT History: Reports: Allergic Rhinitis, Other (See Below) Other HEENT History: wears glasses Cardiovascular History: Reports: None, High Cholesterol (controlled by diet) Gastrointestinal History: Reports: Cholelithiasis, GERD, Hiatal Hernia Genitourinary History: Reports: None MATERIALS BUYER History: Reports: Endometriosis, Musculoskeletal History: Reports: Fracture Other Musculoskeletal History: fx foot Neurological History: Reports: Migraines (occasional) Psychiatric History: Reports: Anxiety, Depression, Suicide Attempt Endocrine/Metabolic History: Reports: Obesity/BMI 30+ Hematologic History: Reports: Anemia Dermatologic History: Reports: Eczema - Past Surgical History Head Surgeries/Procedures: Reports: None GI Surgical History: Reports: Colonoscopy, EGD Female Surgical History: Reports: Hysterectomy, Tubal Ligation Musculoskeletal Surgical History: Reports: Other (See Below) Other Musculoskeletal Surgeries/Procedures:: ganglion cyst removed from rt wrist - SUBSTANCE USE Smoking Status *Q: Former Smoker Tobacco Use Within Last Twelve Months: No Recreational Drug Use History: No - HOME MEDS Home Medications: Home Meds ALPRAZolam [Xanax] 1 tab PO TID PRN 08/26/17 [History] Citalopram [Citalopram HBr] 1 tab PO DAILY 08/26/17 [History] PNV95/Ferrous Fumarate/FA [ Vitamins Tablet] 2 tab CHEW DAILY 08/26/17 [ History] Fluticasone Propionate [Flonase] 2 spray NASBOTH DAILY 04/13/18 [History] Pantoprazole Sodium 40 mg PO DAILY 04/13/18 [History] Rizatriptan Benzoate [Rizatriptan] 1 tab PO ASDIRECTED PRN 04/13/18 [History] - CURRENT (IN HOUSE) MEDS Current Meds: Current Medications Ciprofloxacin/Dextrose 400 mg/ (Premix) 200 mls @ 200 mls/hr IV Q12H [facility] Last Admin: 04/15/18 07:18 Dose: 200 mls/hr Lactated Ringer's (Ringers, Lactated) 1,000 mls @ 125 mls/hr IV ASDIRECTED [facility] Last Admin: 04/15/18 07:17 Dose: 125 mls/hr
[2018-04-15] MEDS ORDERED: Dexamethasone 4 MG/ML 5 ML MDV ONE (07:33)
[2018-04-15] MEDS ORDERED: Lidocaine 2% 5 ML SDV ONE (07:33)
[2018-04-15] MEDS ORDERED: Ondansetron 4 MG/2 ML SDV ONE (07:33)
[2018-04-15] MEDS ORDERED: Succinylcholine 200 MG/10 ML MDV ONE (07:33)
[2018-04-15] MEDS ORDERED: Rocuronium 10 MG/ML 10 ML Syringe ONE (07:33)
[2018-04-15] MEDS ORDERED: Bupivacaine 0.5% 10 ML SDV ONE (07:43)
[2018-04-15] MEDS ORDERED: Glycopyrrolate 0.2 MG/ML SDV ONE ×2 (08:32→08:33)
[2018-04-15] MEDS ORDERED: Ketorolac 30 MG/ML SDV ONE (09:02)
[2018-04-15] MEDS ORDERED: Neostigmine Methylsulfate 1 MG/ML 5 ML Syringe ONE (09:02)
[2018-04-15] MEDS ORDERED: Sugammadex Sodium 200 MG/2 ML VIAL ONE (09:04)
[2018-04-15] MEDS ORDERED: ePHEDrine 50 MG/ML SDV ONE (09:11)
[2018-04-15] MEDS ORDERED: Morphine 10 MG/ML Syringe IVPUSH PRN (09:30)
[2018-04-15] MEDS ORDERED: Lactated Ringers 1,000 ML IV SCH (09:30)
[2018-04-15] MEDS ORDERED: Acetaminophen/HYDROcodone 325-5 MG Tab PO PRN (09:30)
--- NOTE | 2018-04-15 09:32 | PCM.OPNOTE ---
- General Post-Op/Procedure Note Date of Surgery/Procedure: 04/15/18 Operative Procedure(s): Laparoscopic cholecystectomy Pre Op Diagnosis: Symptomatic cholelithiasis Post-Op Diagnosis: Same Anesthesia Technique: General ET Tube (ASA II) Primary Surgeon: Claudy Wilkins Fluid Replacement, Intraop: 600 Output, Urine Amount: 100 EBL in mLs: 25 Condition: Good Free Text/Narrative:: DICTATION [id number] CPT CODE [id number]
[2018-04-15] MEDS ORDERED: fentaNYL 100 MCG/2 ML SDV IVPUSH PRN (09:35)
--- NOTE | 2018-04-15 10:09 | PCM.POSTAN ---
POST ANESTHESIA ASSESSMENT - MENTAL STATUS Mental Status: Alert, Oriented - RESPIRATORY Respiratory Status: Respiratory Rate WNL, Airway Patent, O2 Saturation Stable - CARDIOVASCULAR CV Status: Pulse Rate WNL, Blood Pressure Stable - GASTROINTESTINAL GI Status: No Symptoms - PAIN Pain Score: 2 - POST OP HYDRATION Hydration Status: Adequate & Stable - OBSERVATIONS Free Text/Narrative:: no anesthesia problems
--- NOTE | 2018-04-15 13:30 | OR ---
SURGEON: Claudy Wilkins M.D. DATE OF PROCEDURE: 04/15/2018 OPERATION PERFORMED: Laparoscopic cholecystectomy. ANESTHESIA: General endotracheal. ASA CLASSIFICATION: II. PREOPERATIVE DIAGNOSIS: Symptomatic cholelithiasis. POSTOPERATIVE DIAGNOSIS: Symptomatic cholelithiasis. ESTIMATED BLOOD LOSS: 25 mL. INTRAOPERATIVE FLUID REPLACEMENT: 600 mL of crystalloid. INTRAOPERATIVE URINE OUTPUT: 100 mL. DESCRIPTION OF PROCEDURE: The patient was taken to the operating room and placed on the operating table in the supine position. Time-out was called for appropriate identification of the patient and procedure. Thigh-high TEDs and sequential compression boots were placed. Following satisfactory attainment of general endotracheal anesthesia, Medrano catheter was placed in the patient's urinary bladder. The abdomen was prepped with DuraPrep solution and sterile drapes were applied. Skin just below the umbilicus was infiltrated with 0.5% Marcaine solution. The skin incision was made and deepened through the subcutaneous tissue obtaining hemostasis with the use of electrocautery. The Veress needle was introduced into the peritoneal cavity. The saline drop test was positive. Carbon dioxide pneumoperitoneum was established with the release set at 13 cm of water. Once a satisfactory pneumoperitoneum was established, 5 mm camera and port were placed through the infraumbilical incision. The patient was now positioned with her feet down and rolled to the left. Under camera vision, 12 mm subxiphoid, 5 mm midclavicular, and 5 mm anterior axillary ports were placed. Each incision was preemptively infiltrated with 0.5% Marcaine solution. The gallbladder was grasped, adhesions were taken down, and cholecystohepatic triangle was dissected free obtaining a good critical view of both the cystic duct and cystic artery. These structures were serially hemoclipped and divided with the laparoscopic Metzenbaum scissor. The gallbladder was then dissected away from its bed using electrocautery. There was some spill of bile and care was taken to irrigate and aspirate all this fluid. No stones were spilled. Once the gallbladder was amputated, this was placed in the pouch retrieval bag and secured in the right upper quadrant. The bed of the gallbladder was inspected for hemostasis and small bleeding sites were electrocoagulated. The right upper quadrant was irrigated with saline solution. All fluid was aspirated. Surgicel was placed into the bed of the gallbladder. The right hemidiaphragm was then irrigated with 250 mL of saline containing 20 mL of 0.5% Marcaine solution, that fluid was left in place. Under camera vision, the 12 mm port and pouch were removed. Again, under camera vision, the 5 mm midclavicular and anterior axillary ports were removed and finally the infraumbilical camera and port were removed. Incisions were inspected for hemostasis and no bleeding was noted. The subxiphoid and infraumbilical incisions were closed in 2 layers approximating the subcutaneous tissue with 3-0 Vicryl and the skin with subcuticular 4-0 Monocryl. The anterior axillary and midclavicular incisions were closed with subcuticular 4-0 Monocryl. All incisions were Steri-Stripped and dressed with sterile Tegaderm pads. Sponge, needle, and instrument counts were all correct. The Medrnao catheter was removed prior to emergence from anesthesia. Following emergence from anesthesia and extubation, the patient was taken to recovery room in stable condition. AURA ELIZABETH /[id number]
== END 2018-04-15 11:23 | disposition home or self-care (01) ==
LOC: MW.SDS 06:56
PROVIDERS: ATTEND Surgery
DX: K80.10 Calculus of gallbladder with chronic cholecystitis without obstruction (principal); Z88.1 Allergy status to other antibiotic agents; Z88.2 Allergy status to sulfonamides; F41.9 Anxiety disorder, unspecified; J30.9 Allergic rhinitis, unspecified; K29.50 Unspecified chronic gastritis without bleeding; F32.9 Major depressive disorder, single episode, unspecified; K21.9 Gastro-esophageal reflux disease without esophagitis; E78.00 Pure hypercholesterolemia, unspecified; G43.909 Migraine, unspecified, not intractable, without status migrainosus; Z79.899 Other long term (current) drug therapy; Z87.891 Personal history of nicotine dependence
CPT/HCPCS: 47562; A9270; J0330; J0744; J1100; J1885; J2250; J2405; J2704; J3010; J3490; J7120

== ENCOUNTER 2020-03-04 08:10 | Day surgery (SDC) | payer BC ==
[~2020-03-04 08:10] MED LIST changes: -Ciprofloxacin in D5W 400 MG in Premix Bag 1 BAG IV SCH; +Clindamycin Phosphate in D5W 900 MG in Premix Bag 1 BAG IV SCH; +Sodium Chloride 0.9% 10 ML SDV IV PRN; +Sodium Chloride 0.9% 10 ML Syringe FLUSH PRN; +Sodium Chloride 0.9% 2.5 ML Syringe FLUSH PRN
[2020-03-04] MEDS ORDERED: Propofol 200 MG/20 ML SDV ONE ×2 (08:26→10:17)
--- NOTE | 2020-03-04 08:49 | PCM.PREANE ---
Preanesthetic Assessment - Anesthesia/Transfusion/Family Hx Anesthesia History: Prior Anesthesia Without Reaction Other Type of Anesthesia Reaction Comment: "hard to wake up after hysterectomy" states also had nausea Family History of Anesthesia Reaction: No Transfusion History: No Prior Transfusion(s) Intubation History: Unknown - Review of Systems General: No Symptoms Pulmonary: No Symptoms Cardiovascular: No Symptoms Gastrointestinal: No Symptoms Neurological: No Symptoms Other: Reports: None - Physical Assessment Height: 5 ft 2 in Weight: 88.904 kg ASA Class: 2 Mental Status: Alert & Oriented x3 Airway Class: Mallampati = 1 Dentition: Reports: Normal Dentition Thyro-Mental Finger Breadths: 3 Mouth Opening Finger Breadths: 3 ROM/Head Extension: Full Lungs: Clear to Auscultation, Normal Respiratory Effort Cardiovascular: Regular Rate, Regular Rhythm - Lab Values: Laboratory Last Values WBC 6.64 K/uL (4.0-11.0) 03/04/20 08:26 RBC 4.47 M/uL (4.30-5.90) 03/04/20 08:26 Hgb 13.8 g/dL (12.0-16.0) 03/04/20 08:26 Hct 41.0 % (36.0-46.0) 03/04/20 08:26 MCV 91.7 fL (80.0-98.0) 03/04/20 08:26 MCH 30.9 pg (27.0-32.0) 03/04/20 08:26 MCHC 33.7 g/dL (31.0-37.0) 03/04/20 08:26 RDW Std Deviation 40.3 fl (28.0-62.0) 03/04/20 08:26 RDW Coeff of Reese 12 % (11.0-15.0) 03/04/20 08:26 Plt Count 295 K/uL (150-400) 03/04/20 08:26 MPV 9.20 fL (7.40-12.00) 03/04/20 08:26 - Allergies Allergies/Adverse Reactions: Allergies Allergy/AdvReac Type Severity Reaction Status Date / Time amoxicillin Allergy Hives Verified 02/28/20 08:25 ceftriaxone [From Rocephin] Allergy Hives Verified 02/28/20 08:19 Sulfa (Sulfonamide Allergy Hives Verified 02/28/20 08:19 Antibiotics) - Blood Blood Available: No - Anesthesia Plan Pre-Op Medication Ordered: None - Acknowledgements Anesthesia Type Planned: MAC (general anesthesia back-up plan) Pt an Appropriate Candidate for the Planned Anesthesia: Yes Alternatives and Risks of Anesthesia Discussed w Pt/Guardian: Yes Pt/Guardian Understands and Agrees with Anesthesia Plan: Yes PreAnesthesia Questionnaire HEENT History: Reports: Allergic Rhinitis, Other (See Below) Other HEENT History: wears glasses Cardiovascular History: Reports: None Respiratory History: Reports: None Gastrointestinal History: Reports: GERD, Hiatal Hernia Other Gastrointestinal History: reflux on occasion, relieved by OTC medications Genitourinary History: Reports: None 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: Endometriosis, Musculoskeletal History: Reports: Fracture Other Musculoskeletal History: fx foot Neurological History: Reports: Migraines Psychiatric History: Reports: Anxiety, Depression, PTSD, Suicide Attempt Endocrine/Metabolic History: Reports: Obesity/BMI 30+ (BMI 35.8) Hematologic History: Reports: Anemia Immunologic History: Reports: None Oncologic (Cancer) History: Reports: None Dermatologic History: Reports: Eczema - Past Surgical History Head Surgeries/Procedures: Reports: None HEENT Surgical History: Reports: Naso-Sinus Surgery Cardiovascular Surgical History: Reports: None Respiratory Surgical History: Reports: None GI Surgical History: Reports: Cholecystectomy, Colonoscopy, EGD Female Surgical History: Reports: Hysterectomy, Tubal Ligation Endocrine Surgical History: Reports: None Neurological Surgical History: Reports: None Musculoskeletal Surgical History: Reports: Other (See Below) Other Musculoskeletal Surgeries/Procedures:: ganglion cyst removed from rt wrist Oncologic Surgical History: Reports: None Dermatological Surgical History: Reports: None - SUBSTANCE USE Smoking Status *Q: Former Smoker Tobacco Use Within Last Twelve Months: No - HOME MEDS Home Medications: Home Meds Fluticasone Propionate [Flonase] 2 spray NASBOTH DAILY 04/13/18 [History] Calcium Carbonate [Tums] 1 tab.chew CHEW ASDIRECTED PRN 02/28/20 [History] Montelukast Sodium [Singulair] 10 mg PO BEDTIME 02/28/20 [History] - CURRENT (IN HOUSE) MEDS Current Meds: Current Medications Clindamycin Phosphate 900 mg/ (Premix) 50 mls @ 100 mls/hr IV ONETIME TOBY Lactated Ringer's (Ringers, Lactated) 1,000 mls @ 500 mls/hr IV BOLUS TOBY Sodium Chloride (Saline Flush) 10 ml FLUSH ASDIRECTED PRN PRN Reason: Keep Vein Open Sodium Chloride (Saline Flush) 2.5 ml FLUSH ASDIRECTED PRN PRN Reason: Keep Vein Open Sodium Chloride (Normal Saline) 10 ml IV ASDIRECTED PRN PRN Reason: IV Use Discontinued Medications Propofol (Diprivan 20 Ml) Confirm Administered Dose 600 mg .ROUTE .[employer]-[facility] ONE Stop: 03/04/20 08:27
[2020-03-04] MEDS ORDERED: Bupivacaine 0.25% 10 ML SDV ONE (09:12)
[2020-03-04] MEDS ORDERED: Vasopressin 20 Units/1 ML MDV ONE (09:12)
[2020-03-04] MEDS ORDERED: Neomycin/Polymyxin B Bladder Irrigation 1 ML Amp ONE (09:12)
[2020-03-04] MEDS ORDERED: Dexamethasone 4 MG/ML 5 ML MDV ONE (09:16)
[2020-03-04] MEDS ORDERED: fentaNYL 100 MCG/2 ML SDV ONE (09:16)
[2020-03-04] MEDS ORDERED: Ondansetron 4 MG/2 ML SDV ONE (09:16)
[2020-03-04] MEDS ORDERED: Lidocaine 2% 5 ML SDV ONE (09:16)
[2020-03-04] MEDS ORDERED: Midazolam 1 MG/ML 2 ML SDV ONE (09:16)
[2020-03-04] MEDS ORDERED: Ketorolac 30 MG/ML SDV IVPUSH ONE ×2 (10:27→11:12)
[2020-03-04] MEDS ORDERED: HYDROmorphone 2 MG/ML Syringe IVPUSH ONE (10:45)
--- NOTE | 2020-03-04 10:46 | PCM.OPNOTE ---
<Eula Jimenez - Last Filed: 03/04/20 10:36> - General Post-Op/Procedure Note Date of Surgery/Procedure: 03/04/20 Operative Procedure(s): Single incision mid-urethral sling placement with cystoscopy Pre Op Diagnosis: Mixed stress and urge incontinence Anesthesia Technique: MAC Primary Surgeon: Jennifer Deutsch Secondary Surgeon: Eula Jimenez Fluid Replacement, Intraop: 800 EBL in mLs: 20 Complications: None know Condition: Good Free Text/Narrative:: 44 year old G3P# x 3 with history of total vaginal hysterectomy and bilateral salpingectomy with mixed stress and urge incontinence s/p single incision mid urethral sling placement with cystoscopy. The patient was placed in a dorsal lithotomy position and was prepped and draped. A catheter was inserted and inflated; the ischial pubic rami palpated bilaterally. A 1-1.5 cm incision was made mid urethral and the fascia bluntly dissected bilaterally. The Solyx bladder sling was then loaded and inserted on the right at a 45 degree angle and the carrier was deposited; this was repeated on the left. The incision was then sutured with 2-0 vicyl. Cystoscopy was used to visualize flow from the bilateral ureters. The bladder was filled with approximately 200 mL of NS and the patient was asked to cough with minimal leakage. Patient progressing well. <Jennifer Deutsch - Last Filed: 03/04/20 11:07> - General Post-Op/Procedure Note Operative Procedure(s): Single incision mid-urethral sling placement with Solyx. Cystoscopy Findings: Single incision midurethral sling with solyx Cystoscopy Post-Op Diagnosis: Same Anesthesia Provider: Wiley Zhao Free Text/Narrative:: Intake & Output 03/03/20 03/04/20 03/04/20 22:59 06:59 14:59 Intake Total 1600 Balance 1600
--- NOTE | 2020-03-04 10:59 | PCM.POSTAN ---
POST ANESTHESIA ASSESSMENT - MENTAL STATUS Mental Status: Alert, Oriented - VITAL SIGNS Vital Signs: Last Vital Signs Temp 36.2 C 03/04/20 10:32 Pulse 80 03/04/20 10:47 Resp 14 03/04/20 10:47 BP 123/84 03/04/20 10:47 Pulse Ox 99 03/04/20 10:47 - RESPIRATORY Respiratory Status: Respiratory Rate WNL, Airway Patent, O2 Saturation Stable - CARDIOVASCULAR CV Status: Pulse Rate WNL, Blood Pressure Stable - GASTROINTESTINAL GI Status: No Symptoms - PAIN Pain Score: 0 - POST OP HYDRATION Hydration Status: Adequate & Stable - OBSERVATIONS Free Text/Narrative:: No anesthesia problems
[2020-03-04] MEDS ORDERED: Promethazine 25 MG/ML SDV IM PRN (11:12)
[2020-03-04] MEDS ORDERED: Ondansetron 4 MG/2 ML SDV IVPUSH PRN (11:12)
[2020-03-04] MEDS ORDERED: Morphine 4 MG/ML Syringe IVPUSH PRN (11:12)
[2020-03-04] MEDS ORDERED: Acetaminophen/oxyCODONE 325-5 MG Tab PO PRN ×2 (11:12)
--- NOTE | 2020-03-04 12:06 | PCM48HPAN ---
Post Anesthesia Note - EVALUATION WITHIN 48HRS OF ANESTHETIC Vital Signs in Normal Range: Yes Patient Participated in Evaluation: Yes Respiratory Function Stable: Yes Airway Patent: Yes Cardiovascular Function Stable: Yes Hydration Status Stable: Yes Pain Control Satisfactory: Yes Nausea and Vomiting Control Satisfactory: Yes Mental Status Recovered: Yes Vital Signs: Last Vital Signs Temp 36.2 C 03/04/20 10:32 Pulse 80 03/04/20 10:47 Resp 14 03/04/20 10:47 BP 123/84 03/04/20 10:47 Pulse Ox 99 03/04/20 10:47 - COMMENTS/OBSERVATIONS Free Text/Narrative:: No anesthesia problems
[2020-03-04 12:12] LABS: BLOOD UREA NITROGEN,BUN 12 mg/dL (7.0-18.0); CARBON DIOXIDE,CO2 25.5 mmol/L (21.0-32.0); CHLORIDE,CL 102 mmol/L (98-107); GLUCOSE RANDOM 97 mg/dL (74-106); POTASSIUM,K 4.6 mmol/L (3.5-5.1); SODIUM,NA 134 mmol/L (136-145)
[2020-03-04] MEDS ORDERED: Ketorolac 30 MG/ML SDV IVPUSH PRN (17:12)
--- NOTE | 2020-03-05 15:26 | OR ---
SURGEON: DIANA GAN DATE OF PROCEDURE: 03/04/2020 PREOPERATIVE DIAGNOSIS: A 44-year-old, para 3, with history of total laparoscopic hysterectomy with bilateral salpingo-oophorectomy with mixed urinary incontinence. POSTOPERATIVE DIAGNOSIS: A 44-year-old, para 3, with history of total laparoscopic hysterectomy with bilateral salpingo-oophorectomy with mixed urinary incontinence. PROCEDURES: Single incision midurethral sling with Solyx and cystoscopy. ESTIMATED BLOOD LOSS: 20. IV FLUIDS: 800. ANESTHESIA: MAC. NOTES AND FINDINGS: Normal-sized anteverted uterus. COMPLICATION: None BRIEF HISTORY ABOUT THE PATIENT: A 44-year-old, para 3, with history of hysterectomy, complaining of urge and stress incontinence. The patient had a cystometry done that confirmed the above diagnosis. The patient was given the option for conservative management for her stress incontinence versus pessary versus surgery. The patient desired a midurethral sling. She was then explained the risks, benefits, and alternatives. She was given the option for a Urogynecology referral. She declined. She was explained the risks to include worsening urgency, damage to the bladder or bowel, bleeding, mesh erosion, need of reoperation, continued stress incontinence, frequent UTI. She was given the opportunity to ask questions, and she desired to have the procedure. DESCRIPTION OF PROCEDURE: The patient was taken to the operating room where MAC anesthesia was performed without difficulty. She was prepared and draped in dorsolithotomy position with Johnnie stirrups. The bladder was drained with a Medrano that was left in place. Submucosal injection was made in the mid urethra with 10ml (dilution of vasopressin 20u, 0.25% bupivacaine, and normal saline- 30ml) . Then, a 2 cm incision was made in the anterior wall of the vagina at the level of the mid urethra. The vaginal epithelium was then bilaterally undermined and from the endopelvic fascia using sharp dissection to the level of the inferior pubic rami. This created the pathway for delivery of the sling device. The tip of the device was then placed into the mesh tip carrier. The deployment mechanism was inserted into the dissected pathway at an angle of 45 degrees and used to pass distal anchors to the obturator internus muscle behind the pubic rami. The anchors were advanced until the midline marking was reached. Once the position was optimized, the anchoring carrier was then deployed from the trocar by stabilizing the delivery trocar with one hand and pulling the device with the other hand. This was repeated in a similar fashion on the opposite side. The mesh carrier was deposited into the obturator muscle, and the sling was brought to rest at the level of the mid urethra without tension. The surgeon verified that the mesh was not twisted prior to deployment of the second mesh, and there was a small instrument that could easily be passed between the urethra and the sling. After the sling was deployed, the antibiotic was used to irrigate the perineum, and vaginal mucosa was closed with 2-0 Vicryl in a continuous locking fashion. The patient will go home after a voiding trial. The patient tolerated the procedure well and was taken to recovery room in stable condition. ASA ELIZABETH /[id number] RAH
== END 2020-03-04 12:15 | disposition home or self-care (01) ==
LOC: MW.SDS 08:10
PROVIDERS: ATTEND Obstetrics & Gynecology
DX: N39.46 Mixed incontinence (principal); K21.9 Gastro-esophageal reflux disease without esophagitis; F41.9 Anxiety disorder, unspecified; F32.9 Major depressive disorder, single episode, unspecified; F43.10 Post-traumatic stress disorder, unspecified; E78.00 Pure hypercholesterolemia, unspecified; E66.9 Obesity, unspecified; Z87.891 Personal history of nicotine dependence; Z79.51 Long term (current) use of inhaled steroids; Z68.35 Body mass index [BMI] 35.0-35.9, adult; Z88.1 Allergy status to other antibiotic agents; Z88.2 Allergy status to sulfonamides; Z88.0 Allergy status to penicillin; Z90.710 Acquired absence of both cervix and uterus
CPT/HCPCS: 36415; 57288; 80048; 80061; 84703; 85027; C1771; J0131; J1100; J1885; J2001; J2250; J2704; J3010; J3490; J7120; 00860; J2405